=== PATIENT | female | born 1950 | race Caucasian/White ===

== ENCOUNTER → 2017-08-06 | Outpatient (CLI) | payer MEDICARE ==
[2017-08-06 14:33] LABS: HEMOGLOBIN 13.4 g/dL (12.2-16.2); LYMPH # 2.3 K/mm3 (0.7-4.5); LYMPH % 30.2 % (10-50.0)
[2017-08-06 15:53] LABS: BUN 17 mg/dL (7-18)
[2017-08-06 16:10] LABS: GFR (ESTIMATED) 84 ML/MIN (59-)
== END ==
LOC: CARL-LAB 10:39
PROVIDERS: Nurse Practitioner Women's Health
DX: M06.1 Adult-onset Still's disease (principal); M19.049 Primary osteoarthritis, unspecified hand; M17.0 Bilateral primary osteoarthritis of knee; Z91.89 Other specified personal risk factors, not elsewhere classified; Z79.899 Other long term (current) drug therapy

== ENCOUNTER → 2017-09-23 | Outpatient (CLI) | payer MEDICARE ==
[2017-09-23 13:36] LABS: HEMOGLOBIN 14.1 g/dL (12.2-16.2); LYMPH # 2.5 K/mm3 (0.7-4.5)
[2017-09-23 14:36] LABS: BUN 13 mg/dL (7-18)
[2017-09-23 14:43] LABS: GFR (ESTIMATED) 72 ML/MIN (59-)
== END ==
LOC: CARL-LAB 09:17
PROVIDERS: Nurse Practitioner Women's Health
DX: M06.1 Adult-onset Still's disease (principal); M19.049 Primary osteoarthritis, unspecified hand; M17.0 Bilateral primary osteoarthritis of knee; Z91.89 Other specified personal risk factors, not elsewhere classified; Z79.899 Other long term (current) drug therapy